=== PATIENT | female | born 1950 | race Caucasian/White ===

== ENCOUNTER 2017-07-20 07:00 | Day surgery (SDC) | payer OTHER ==
[2017-07-19 12:26] LABS: HEMATOCRIT 38.9 % (36.0-48.0); HEMOGLOBIN 12.2 g/dL (12-16); MCHC 31.4 g/dL (31.0-37.0); MCV 89.2 fL (80.0-100.0); RBC 4.36 10x6/uL (4.00-5.40); WBC 9.5 10x3/uL (4.8-10.8)
[~2017-07-20] VITALS: Ht 170.2 cm; Wt 108.9 kg
[~2017-07-20 07:00] MED LIST: VITAMIN
[2017-07-20 07:35] VITALS: Ht 170.2 cm; Wt 108.9 kg
[2017-07-20] MEDS ORDERED: HYDROCODON-ACE1 EAC7 PO (10:39)
== END 2017-07-20 13:50 | disposition home or self-care (01) ==
LOC: D.OPS 07:00 → D.PAN 09:30 → D.OPS 10:45 → D.PAN 10:45 → D.OPS 13:50
PROVIDERS: Anesthesiology
DX: K80.20 Calculus of gallbladder without cholecystitis without obstruction (principal); E66.01 Morbid (severe) obesity due to excess calories; Z01.812 Encounter for preprocedural laboratory examination; Z68.37 Body mass index [BMI] 37.0-37.9, adult